=== PATIENT | female | born 1980 | race Two or more races ===

== ENCOUNTER → 2023-11-28 14:12 | Outpatient (REF) | payer BC, SELFPAY ==
--- NOTE | 2023-11-28 14:24 | ECG_ITS ---
Test Reason : qtc check Blood Pressure : / mmHG Vent. Rate : 081 BPM Atrial Rate : 081 BPM P-R Int : 162 ms QRS Dur : 078 ms QT Int : 390 ms P-R-T Axes : 050 057 041 degrees QTc Int : 453 ms Normal sinus rhythm Normal ECG No previous ECGs available Referred By: Justa Ambriz Electronically Signed By:TRISH FLORES
== END ==
LOC: HO.CARD 14:12
PROVIDERS: PCP Student in an Organized Health Care Education/Training Program; Visit Provider Psychiatry & Neurology Psychiatry
DX: F39 Unspecified mood [affective] disorder (principal); F41.3 Other mixed anxiety disorders
CPT/HCPCS: 93005

== ENCOUNTER → 2023-11-28 14:24 | Outpatient (BNV) | payer BC, SELFPAY | PROVIDERS: PCP Student in an Organized Health Care Education/Training Program; Visit Provider Internal Medicine | DX: F39 Unspecified mood [affective] disorder (principal); F41.3 Other mixed anxiety disorders | CPT/HCPCS: 93010 ==

== ENCOUNTER 2023-12-01 08:33 | Outpatient (REF) | payer BC, SELFPAY ==
[2023-12-01 09:03] LABS: MANUAL DIFF FLAG NO
[2023-12-01 09:21] LABS: Basophils Percent Auto 0.5 % (0-2); Eosinophils Absolute Auto 0.2 X10*3/uL (0.0-0.4); Eosinophils Percent Auto 2.5 % (0-4); Hematocrit 35.9 % (37.0-47.0); Hemoglobin 11.5 g/dl (12.0-16.0); Imm Gran Abs Auto 0.02 X10*3/uL (0.00-0.03); Imm Gran Pct Auto 0.3 % (0.0-0.4); Lymphocytes Absolute Auto 2.1 X10*3/uL (1.2-4.9); Lymphocytes Percent Auto 33.5 % (20-40); Mean Corpuscular Hemoglobin 26.3 pg (27.0-33.0); Mean Platelet Volume 8.6 fL (9.4-12.3); Monocytes Absolute Auto 0.4 X10*3/uL (0.1-1.2); Monocytes Percent Auto 6.9 % (2-11); Neutrophils Absolute Auto 3.6 x10*3/uL (2.0-8.3); Neutrophils Percent Auto 56.3 % (45-73); Platelet Count 274 X10*3/uL (160-400); Red Blood Count 4.38 X10*6/uL (4.20-5.50); Red Cell Distribution Width 15.7 % (11.0-16.0); White Blood Count 6.4 X10*3/uL (4.8-10.8)
[2023-12-01 09:54] LABS: Estimated Average Glucose 100 mg/dL; Hemoglobin A1c % 5.1 % (<6.0)
[2023-12-01 10:03] LABS: Erythrocyte Sedimentation Rate 33 MM/HR (0-20)
[2023-12-01 10:09] LABS: Alanine Aminotransferase 7 U/L (0-31); Albumin Level 4.2 g/dL (3.5-5.0); Alkaline Phosphatase 86 U/L (39-117); Anion Gap 10 (12-20); Aspartate Amino Transferase 13 U/L (5-31); Bilirubin Total 0.3 mg/dL (0.0-1.0); Blood Urea Nitrogen 18 mg/dL (9-16); Carbon Dioxide 23 mmol/L (22-29); Chloride 109 mmol/L (96-108); Cholesterol 238 mg/dL (<200); Estimated Glomerular Filt Rate > 60; Glucose Fasting 98 mg/dL (60-99); HDL Cholesterol 58 mg/dL (>40); Iron 39 mcg/dL (30-160); LDL Cholesterol Calculated 167 mg/dL (<100); Magnesium 1.9 mg/dL (1.6-2.6); Percent Iron Saturation 11 % (15-50); Phosphorus 2.9 mg/dL (2.7-4.5); Potassium 4.2 mmol/L (3.3-5.1); Sodium 138 mmol/L (135-145); Total Iron Binding Capacity 359 mcg/dL (228-428); Total Protein 7.9 g/dL (6.5-8.0); Triglycerides 67 mg/dL (<150); Unsaturated Iron Binding 320 ug/dL
[2023-12-01 10:15] LABS: Ferritin 9 ng/mL (10-250); Free T4 (Free Thyroxine) 0.98 ng/dL (0.71-1.85); Thyroid Stimulating Hormone 4.01 uIU/mL (0.32-4.0)
[2023-12-01 10:52] LABS: Microalbum/Creatinine Ratio Ur 5.6 ug/mg cr (<30)
[2023-12-01 11:27] LABS: Folate 8.9 ng/mL (> or = 4.0); Vitamin B12 382 pg/mL (200-900)
[2023-12-02 08:22] LABS: Follicle Stimulating Hormone 2.7 mIU/mL; Lutenizing Hormone 3.1 mIU/mL
[2023-12-02 09:08] LABS: Triiodothyronine T3 Free 2.3 pg/mL (2.3-4.2); Triiodothyronine T3 Total 83 ng/dL (76-181)
== END 2023-12-01 08:34 | disposition home or self-care (01) ==
LOC: HO.LAB 08:33
PROVIDERS: PCP Student in an Organized Health Care Education/Training Program; Visit Provider Psychiatry & Neurology Psychiatry
DX: Z13.6 Encounter for screening for cardiovascular disorders (principal); F39 Unspecified mood [affective] disorder; F41.3 Other mixed anxiety disorders
CPT/HCPCS: 36415; 80053; 80061; 82043; 82570; 82607; 82728; 82746; 83001; 83002; 83036; 83540; 83735; 84100; 84439; 84443; 84480; 84481; 85025; 85652; 86140

== ENCOUNTER 2023-12-10 09:45 | Outpatient (RCR) | payer BC, SELFPAY ==
[2023-11-26 13:14] VITALS: BP 114/82; PULSE 92; TEMP 37.4
[2023-11-26 13:16] VITALS: BMI 26.9
--- NOTE | 2023-11-26 14:18 | PC.ADMIT ---
Patient is a 43 year old single female who was referred to [facility] by [facility] crisis d/t increased depression with passive SI, increased anxiety with panic attacks, and PTSD sxs. Patient reports experiencing many deaths since 2019 and has been unable to grieve and work stresses as triggers. She reports being on FMLA since October 16-December 12, 2023 d/t mental health symptoms. Patient reports drinking alcohol three days a week since Covid stating on Friday's she drinks a solo cup mixed drink with 2 shots. Friday's 750 ml bottle of wine a bottle and a half twice a week. Reports on 11/25/23 she had one glass of wine. Denied any SXS of withdrawal from ETOH, No N/V, no headache, no diaphoresis, no tremors. VSS. Denied any history of withdrawal symptoms from ETOH. Patient given written and verbal education of binge drinking short term and long term acute care registered nurse effects. Also given information about Alcohol Use disorder. Patient wants to cut down her use. Unsure if she wants to utilized substance use groups at this time. Encouraged her to attend for more support. Patient is alert and oriented x4. Calm and cooperative. Presented with depressed mood and anxious affect. Reports passive suicidal thoughts however denied any plans of intent to kill herself. She stated she could never do that to her parents who are very supportive. Patient given a copy of her safety plan and I reviewed this with her. Medications reconciled with patient and patient's pharmacy. She is starting new medication Trazodone tonight to help improve her sleep. Medication education provided.
--- NOTE | 2023-11-27 14:05 | HO.PHP ---
Client's case has been opened and reviewed in treatment team.
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
--- NOTE | 2023-12-02 15:05 | HO.PHP ---
[facility] staff member contacted Myrna Morales to place a referral for OP therapy. [facility] staff member provided her with behavioral health information. Myrna noted her next available appointment is on December 15, 2023 at 11 AM. Myrna explored with clinician if Patti will be able to maintain that slot with her working. [facility] staff disclosed that she will follow up with Patti. [facility] staff member followed up with Patit who noted that time slot will work. [facility] staff was receptive and provided her with the appointment date and time.
--- NOTE | 2023-12-02 21:36 | P.PNPSP_ITS ---
Subjective Subjective Date of Service: 12/02/23 Reason For Visit: depression,trauma Interim History: Reports doing okay with starting Abilify, denies any adverse effects. Is still at 1/2 tablet but was delayed picking up script from pharmacy so just started on 2 nights ago. SHe is agreeable to start titrating up by 1 mg/d as tolerated, aiming to get dose closer to 4 or 5 mg by next weekend. She was relieved that the medication did not set off any migraines or dizziness (as she is prone to side effects). The prazosin has been helpful, she has been taking it QHS and can feel my physical self relax , diminished restless legs and also no further tremoring or twitches. She also notes reduced hitching (short hermelinda breaths from stress or high emotions) Her mood is still low, and though she is feeling a little better. She endorses still feeling like not wanting to be here She denies having any thoughts or intention of ever ending her life, that wont happen but does add that she finds the thought of not existing a comforting possibility, just remind myself that you dont have to stay alive forever . She asks if that is strange , considering she doesnt feel she is as depressed perhaps modest imrpovement in mood, but passive SI persists. Reporting cravings for sweets and food especially perimenstrually. Endorses only fleeting thoughts of alcohol, and does not feel she has an addiction or dependence issues although admits she has used it to self medicate stress before, just avoiding alcohol now bc starting new medication and fears interactions. Medication Compliance: Yes Side effects from medications: No Attending Groups: Yes Review of Systems Acute medical concerns: No Mental Status Exam Mental Status Exam Narrative: Alert, oriented, in no acute distress. Mood depressed, affect variable, anxious. Speech normal. Thought process scattered, linear, coherent. Thought content related to stressors, executive dysfunction, feeling overwhelmed, some transient helplessness and hopelessness, endorses passive SI without intention or plan. D enies any aggressive ideation or HI. No paranoia or delusional content elicited. No evidence of psychosis. Insight and judgment fair but adequate. Diagnostics Vital Signs (24Hr): BMI result Body Mass Index 26.9 Assessment & Plan Assessment & Plan (1) MDD (major depressive disorder), recurrent severe, without psychosis: Status: Acute Code(s): F33.2 - Major depressive disorder, recurrent severe without psychotic features (2) Alcohol abuse with alcohol-induced mood disorder: Status: Acute Code(s): F10.14 - Alcohol abuse with alcohol-induced mood disorder (3) PTSD (post-traumatic stress disorder): Status: Acute Code(s): F43.10 - Post-traumatic stress disorder, unspecified (4) SHANNON (generalized anxiety disorder): Status: Acute Code(s): F41.1 - Generalized anxiety disorder (5) Attention and concentration deficit: Status: Acute Code(s): R41.840 - Attention and concentration deficit Plan increase Abilify 2-3 mg qhs to target mood dysreg, high emo reactivity, hypervigilence, ptsd continue Celexa at 30 mg qhs increase prazosin 1 mg to BID dosing in AM as well as QHS, as tolerated, to target sleep, anxiety, hyperarousal and symp tone discontinue trazodone (AE drying) start gabapentin 300 mg qhs continue hydroxyzine 25 mg BID prn insomnia, anxiety continue other regular medications - levothyroxine 75 mcg daily Routine lab work ordered EKG, routine for baseline QTc for medication considerations UDS as indicated MassPat reviewed Continue to monitor as per protocol Patient educated on: diagnosis, medication risk/benefits and substance abuse Informed Consent: understands Reason for contiued partial hosp. stay Substantial Risk for: inability to function, rapid decompensation and med/psych decompensation Certification I certify that partial hospital treatment is medically necessary due to the symptoms and problems resulting from the patient's mental illness and the failure to treat the patient at the partial hospital level of care would likely result in the patient requiring inpatient psychiatric care which could not be prevented at a less intensive level of care. Total time managing care of this patient today _30_ minutes. Discharge Plan Discharge Attending provider: Justa Ambriz Medications: New prazosin 1 mg capsule 1 mg PO BID Qty: 30 0RF aripiprazole 2 mg tablet 2 mg PO BEDTIME Qty: 20 0RF citalopram 20 mg tablet 30 mg PO DAILY Qty: 45 0RF gabapentin 300 mg capsule 300 mg PO BEDTIME Qty: 14 0RF Continued levothyroxine 75 mcg tablet 75 mcg PO DAILY No Action citalopram 40 mg tablet 40 mg PO DAILY trazodone 50 mg Tablet See Rx Instructions .ROUTE .COMPLEX Rx Instructions: Take one half tab at bedtime. If ineffective take 1 tab at bedtime. hydroxyzine HCl 25 mg tablet 25 mg PO BID PRN (Reason: anxiety) Stand Alone Forms: Patient Portal Discharge page
--- NOTE | 2023-12-09 09:40 | P.PNPSP_ITS ---
Subjective Subjective Date of Service: 12/09/23 Reason For Visit: depression,trauma Interim History: Patient seen for follow up and is anticipating discharge at the end of the day. Reports overall doing better, depression severity at a 2.5 out of 10, down from a 10/10 on admission. Mood stability improved from a 0 out of 10 on admission to a an 8 today. Mostly issues relating to cognitive and executive function remaining. She would still like to follow through with plan to start on modafinil. She has upcoming appointments with new therapist and new psych provider on December 14 and December 15, respectively. Reports no acute issues or concerns. Medication compliant, medications well- tolerated. Denies any adverse effects.? Mood is stable.? Denies any hopelessness or SI. Denies thoughts of harming self or others at this time. Denies any aggressive ideation or HI. Denies any pa ranoia or AH or VH. Sleep, appetite, energy stable. Mental Status Exam Mental Status Exam Narrative: Alert, oriented, in no acute distress. Mood better, more stable, affect appropriate. Speech normal. Thought process linear, coherent. Thought content related to stressors, denies helplessness, hopelessness, or SI.. Denies any aggressive ideation or HI. No paranoia or delusional content elicited. No evidence of psychosis. Insight and judgment fair-good. Diagnostics Vital Signs (24Hr): BMI result Body Mass Index 26.9 Assessment & Plan Assessment & Plan (1) MDD (major depressive disorder), recurrent severe, without psychosis: Status: Acute Code(s): F33.2 - Major depressive disorder, recurrent severe without psychotic features (2) Alcohol abuse with alcohol-induced mood disorder: Status: Acute Code(s): F10.14 - Alcohol abuse with alcohol-induced mood disorder (3) PTSD (post-traumatic stress disorder): Status: Acute Code(s): F43.10 - Post-traumatic stress disorder, unspecified (4) SHANNON (generalized anxiety disorder): Status: Acute Code(s): F41.1 - Generalized anxiety disorder (5) Attention deficit disorder (ADD) in adult: Status: Acute Code(s): F98.8 - Other specified behavioral and emotional disorders with onset usually occurring in childhood and adolescence Plan Discharge from [facility] start modafinil 50 mg qAM increase Abilify to 3.5 mg qhs - to target mood dysreg, high emo reactivity, hypervigilence, ptsd decrease Celexa to 20 mg qhs continue prazosin 1 mg QAM as tolerated (may be helpful to take either with modafinil in the AM, or after lunch) consider AM switch to guanfacine ER continue prazosin 1 mg QHS - to target sleep, anxiety, hyperarousal and sympathetic tone continue gabapentin 300 mg qhs continue hydroxyzine 25 mg BID prn insomnia, anxiety continue other regular medications - levothyroxine 75 mcg daily discontinued: trazodone (AE drying) Routine lab work findings reviewed - notable for mild anemia, appears to be Fe deficiency, sluggish thyroid (on 75 mcg - had been on 100 mg not long ago, has not been any help) FSH, LH normal (premenopausal) EKG from 11/27 reviewed, normal findings, VR 81 in sinus rhythm, QTc 453 ms Continue to monitor as per protocol Refills sent to pharmacy Will defer further medication management to outpatient provider - meeting with Dr. Dulce Bernard on 12/15 Patient educated on: diagnosis and medication risk/benefits Informed Consent: understands Reason for contiued partial hosp. stay Substantial Risk for: stable for discharge Certification I certify that partial hospital treatment is medically necessary due to the symptoms and problems resulting from the patient's mental illness and the failure to treat the patient at the partial hospital level of care would likely result in the patient requiring inpatient psychiatric care which could not be prevented at a less intensive level of care. Total time managing care of this patient today __30__ minutes. Discharge Plan Discharge Attending provider: Justa Ambriz Medications: New aripiprazole 2 mg tablet 2 mg PO BEDTIME Qty: 20 0RF gabapentin 300 mg capsule 300 mg PO BEDTIME Qty: 14 0RF aripiprazole 5 mg tablet 5 mg PO BEDTIME Qty: 30 0RF modafinil 100 mg tablet 100 mg PO QAM Qty: 30 0RF ferrous sulfate 325 mg (65 mg iron) tablet,delayed release (DR/EC) 325 mg PO DAILY Qty: 30 0RF Rx Instructions: take as directed prazosin 1 mg capsule 1 mg PO BID Qty: 60 0RF metformin 500 mg tablet 250 mg PO BID Qty: 20 0RF Continued levothyroxine 75 mcg tablet 75 mcg PO DAILY hydroxyzine HCl 25 mg tablet 25 mg PO BID PRN (Reason: anxiety) Changed citalopram 20 mg tablet 20 mg PO DAILY Qty: 45 0RF Discontinued citalopram 40 mg tablet 40 mg PO DAILY trazodone 50 mg Tablet See Rx Instructions .ROUTE .COMPLEX Rx Instructions: Take one half tab at bedtime. If ineffective take 1 tab at bedtime. Stand Alone Forms: Patient Portal Discharge page Print Language: Sinhala
== END 2023-12-10 23:59 | disposition home or self-care (01) ==
LOC: HO.PHPA 09:45
PROVIDERS: Visit Provider Psychiatry & Neurology Psychiatry
DX: F33.2 Major depressive disorder, recurrent severe without psychotic features (principal); F10.14 Alcohol abuse with alcohol-induced mood disorder; F43.10 Post-traumatic stress disorder, unspecified; F41.1 Generalized anxiety disorder; F98.8 Other specified behavioral and emotional disorders with onset usually occurring in childhood and adolescence; Z79.899 Other long term (current) drug therapy
CPT/HCPCS: 90791; 90853